=== PATIENT | male | born 1965 | race Caucasian/White ===

== ENCOUNTER 2019-01-31 19:06 | Inpatient (IN) | payer MEDICAID, OTHER ==
[~2019-01-31] VITALS: Ht 177.8 cm; Wt 190.5 kg
[~2019-01-31 19:06] MED LIST: ALLO300T2 PO; CLIN150C15 PO; CLIN300C11 PO; FURO20TA4 PO; GLU500 PO; HYDR-4100 PO; INDO-12 PO; KETO60CR2 TP; LEVO500T20 PO; LOSA25TA3 PO; OXCA300O4 PO; PRO40 PO
[2019-01-31 19:15] VITALS: BP_SYST 158
[2019-01-31] MEDS ORDERED: NACL 0.9% 2,000 ML IV ONE (20:02)
[2019-01-31] MEDS ORDERED: ONDANSETRON HCL 4 MG/2 ML VIAL IVP ONE (20:15)
[2019-01-31] MEDS ORDERED: CLINDAMYCIN 900 mg/50mL D5W 50 ML IV ONE (20:15)
[2019-01-31] MEDS ORDERED: MORPHINE 4 MG/ML INJ. SYRINGE IVP ONE (20:15)
[2019-01-31 21:13] LABS: BASOPHILS # (AUTO) 0.1 K/uL (0.0-0.2); BASOPHILS % (AUTO) 1.5 % (0.0-2.0); EOSINOPHILS # (AUTO) 0.2 K/uL (0.0-0.4); EOSINOPHILS % (AUTO) 2.1 % (0.0-4.0); HEMATOCRIT 36.1 % (36-54); HEMOGLOBIN 12.5 g/dL (14.0-18.0); LYMPHOCYTES # (AUTO) 1.5 K/uL (1.0-5.5); LYMPHOCYTES % (AUTO) 19.5 % (20.5-51.5); MEAN CORPUSCULAR HEMOGLOBIN 35 pg (27-31); MEAN CORPUSCULAR HGB CONC 35 % (32-36); MEAN CORPUSCULAR VOLUME 100 fL (79.0-98.0); MONOCYTES # (AUTO) 0.7 K/uL (0.0-1.0); MONOCYTES % (AUTO) 8.6 % (1.7-9.3); NEUTROPHILS # (AUTO) 5.3 K/uL (1.8-7.7); NEUTROPHILS % (AUTO) 68.3 % (40.0-70.0); PLATELET COUNT (AUTO) 206 K/uL (130-430); RED BLOOD CELL COUNT(AUTO) 3.61 MIL/uL (4.2-6.2); RED CELL DISTRIBUTION WIDTH 16.4 % (9.0-15.0); WHITE BLOOD COUNT (AUTO) 7.7 K/uL (4.8-10.8)
[2019-01-31 21:19] LABS: BILIRUBIN,URINE NEGATIVE (NEGATIVE); BLOOD, URINE NEGATIVE (NEGATIVE); CLARITY/URINE CLEAR (CLEAR); COLOR,URINE YELLOW (YELLOW); GLUCOSE,URINE NEGATIVE (NEGATIVE); KETONES,URINE NEGATIVE (NEGATIVE); LEUKOCYTE ESTERASE ,URINE NEGATIVE (NEGATIVE); NITRITE, URINE NEGATIVE (NEGATIVE); PH,URINE 7.5 (5.0-8.0); PROTEIN URINE 2+ (NEGATIVE); UROBILINOGEN,URINE 0.2 (0.2-1.0)
[2019-01-31 21:22] LABS: CALCIUM 8.7 mg/dL (8.4-11.0); CREATININE 0.82 mg/dL (0.55-1.30); POTASSIUM 4.4 mmol/L (3.5-5.1)
[2019-01-31 21:26] LABS: INR 1.1 (0.80-1.20); PROTHROMBIN TIME 10.8 SECS (9.5-12.5)
[2019-01-31 21:26] LABS: BACTERIA,URINE None Seen /HPF (None Seen); MUCUS,URINE None Seen /LPF (None Seen); RBC,URINE NONE SEEN /HPF (0-3); WBC,URINE 0-3 /HPF (0-3)
[2019-01-31 21:28] LABS: ALBUMIN 3.4 g/dL (3.4-4.8); TOTAL BILIRUBIN 0.4 mg/dL (0.0-1.0)
[2019-01-31] MEDS ORDERED: BACTROBAN TP (22:38)
[2019-01-31] MEDS ORDERED: FEN12PAT TD (22:39)
[2019-01-31] MEDS ORDERED: TIZA2TAB5 PO (22:39)
[2019-01-31] MEDS ORDERED: CHLO473M5 MM (22:41)
[2019-01-31] MEDS ORDERED: HEPA500015 SUBCUT (22:45)
[2019-01-31] MEDS ORDERED: ACET325T53 PO (22:48)
[2019-01-31] MEDS ORDERED: ONDA4TAB5 PO (22:52)
[2019-01-31] MEDS ORDERED: VANCOMYCIN IV SCH (23:00)
[2019-01-31] MEDS ORDERED: SODIUM CHLORIDE IV SCH (23:00)
[2019-01-31 23:09] VITALS: BP_SYST 142
[2019-01-31] MEDS ORDERED: MORPHINE 2 MG/ML INJ. SYRINGE IVP PRN ×2 (23:45)
[2019-02-01] MEDS ORDERED: CLINDAMYCIN 900 mg/50mL D5W 50 ML IV ONE (00:07)
[2019-02-01] MEDS ORDERED: VANCOMYCIN HCL 1000 MG/VIAL IV ONE (00:07)
[2019-02-01] MEDS: MORPHINE 4 MG/ML INJ. SYRINGE IVP PRN ×7 (00:29→21:25)
[2019-02-01 00:48] VITALS: BP_SYST 146
[2019-02-01] MEDS ORDERED: CLINDAMYCIN 900 mg/50mL D5W 50 ML IV SCH (06:00)
[2019-02-01] MEDS ORDERED: CLINDAMYCIN 900 MG in D5W 100 ML IV SCH (06:00)
[2019-02-01 08:00] VITALS: BP_SYST 140
[2019-02-01] MEDS: VANCOMYCIN HCL 1,500 MG in NS 250 ML IV SCH ×2 (09:44→18:13)
[2019-02-01 12:29] VITALS: BP_SYST 136
[2019-02-01 16:40] VITALS: BP_SYST 126
[2019-02-01 20:00] VITALS: BP_SYST 159
[2019-02-01] MEDS ORDERED: ACETAMINOPHEN 325 MG TABLET PO PRN (20:30)
[2019-02-01] MEDS: MUPIROCIN 2% TOPICAL OINTMENT 22 GM TP SCH ×2 (20:30→21:00)
[2019-02-01] MEDS: ONDANSETRON 4 MG ODT TAB PO PRN (21:30)
[2019-02-02] MEDS: VANCOMYCIN HCL 1,500 MG in NS 250 ML IV SCH ×3 (01:05→18:20)
[2019-02-02] MEDS: MORPHINE 4 MG/ML INJ. SYRINGE IVP PRN ×4 (01:06→11:46)
[2019-02-02 01:22] VITALS: BP_SYST 138
[2019-02-02] MEDS: HYDROcodone/ACETAMIN 10-325 MG TAB PO PRN ×3 (02:08→17:57)
[2019-02-02] MEDS: ONDANSETRON 4 MG ODT TAB PO PRN (08:07)
[2019-02-02 08:28] VITALS: BP_SYST 146
[2019-02-02] MEDS ORDERED: fentaNYL 12 MCG/HR PATCH TD SCH (09:00)
[2019-02-02] MEDS: PANTOPRAZOLE SODIUM 40 MG TAB PO SCH (09:36)
[2019-02-02] MEDS: ALLOPURINOL 300 MG TABLET (ZYLOPRIM) PO SCH (09:36)
[2019-02-02] MEDS: MUPIROCIN 2% TOPICAL OINTMENT 22 GM TP SCH ×2 (09:38→20:17)
[2019-02-02 09:40] LABS: BASOPHILS # (AUTO) 0.1 K/uL (0.0-0.2); BASOPHILS % (AUTO) 0.8 % (0.0-2.0); EOSINOPHILS # (AUTO) 0.2 K/uL (0.0-0.4); EOSINOPHILS % (AUTO) 2.2 % (0.0-4.0); HEMATOCRIT 34.8 % (36-54); HEMOGLOBIN 11.9 g/dL (14.0-18.0); LYMPHOCYTES % (AUTO) 26.2 % (20.5-51.5); MEAN CORPUSCULAR HEMOGLOBIN 33 pg (27-31); MEAN CORPUSCULAR HGB CONC 34 % (32-36); MEAN CORPUSCULAR VOLUME 97 fL (79.0-98.0); MONOCYTES # (AUTO) 0.7 K/uL (0.0-1.0); MONOCYTES % (AUTO) 9.1 % (1.7-9.3); NEUTROPHILS # (AUTO) 4.7 K/uL (1.8-7.7); NEUTROPHILS % (AUTO) 61.7 % (40.0-70.0); PLATELET COUNT (AUTO) 227 K/uL (130-430); RED CELL DISTRIBUTION WIDTH 16.7 % (9.0-15.0); WHITE BLOOD COUNT (AUTO) 7.6 K/uL (4.8-10.8)
[2019-02-02 10:00] LABS: ALBUMIN 3.3 g/dL (3.4-4.8); CALCIUM 8.4 mg/dL (8.4-11.0); CREATININE 0.71 mg/dL (0.55-1.30); POTASSIUM 4.1 mmol/L (3.5-5.1); TOTAL BILIRUBIN 0.5 mg/dL (0.0-1.0)
[2019-02-02 12:29] VITALS: BP_SYST 125
[2019-02-02] MEDS: HEPARIN SODIUM,PORCINE 5000 UNITS/ML VIAL SUBCUT SCH ×2 (14:26→22:21)
[2019-02-02] MEDS: MORPHINE SULFATE 10 MG/ML VIAL IVP PRN ×2 (15:31→20:04)
[2019-02-02] MEDS: EMOLLIENT COMBINATION NO.73 78 GM CREAM..G. TP SCH ×2 (15:32→20:18)
[2019-02-02 16:55] VITALS: BP_SYST 126
[2019-02-02 20:00] VITALS: BP_SYST 146
[2019-02-03] MEDS: MORPHINE SULFATE 10 MG/ML VIAL IVP PRN ×6 (00:02→20:26)
[2019-02-03 00:40] VITALS: BP_SYST 133
[2019-02-03] MEDS: VANCOMYCIN HCL 1,500 MG in NS 250 ML IV SCH ×3 (02:07→17:30)
[2019-02-03] MEDS: ONDANSETRON 4 MG ODT TAB PO PRN ×2 (04:04→12:28)
[2019-02-03] MEDS: HEPARIN SODIUM,PORCINE 5000 UNITS/ML VIAL SUBCUT SCH ×2 (05:50→13:44)
[2019-02-03 08:00] VITALS: BP_SYST 148
[2019-02-03] MEDS: EMOLLIENT COMBINATION NO.73 78 GM CREAM..G. TP SCH (08:11)
[2019-02-03] MEDS: PANTOPRAZOLE SODIUM 40 MG TAB PO SCH (08:11)
[2019-02-03] MEDS: MUPIROCIN 2% TOPICAL OINTMENT 22 GM TP SCH (08:11)
[2019-02-03] MEDS: ALLOPURINOL 300 MG TABLET (ZYLOPRIM) PO SCH (08:12)
[2019-02-03] MEDS: HYDROcodone/ACETAMIN 10-325 MG TAB PO PRN ×2 (10:55→17:31)
[2019-02-03 12:18] VITALS: BP_SYST 137
[2019-02-03 15:32] VITALS: BP_SYST 115
[2019-02-03 16:39] VITALS: BP_SYST 115
== END 2019-02-03 22:15 | DRG 383 ==
LOC: SED 19:06 → SMU 21:49
PROVIDERS: ADMIT Internal Medicine; ATTEND Internal Medicine
DX: L03.116 Cellulitis of left lower limb (principal); I50.22 Chronic systolic (congestive) heart failure; E66.01 Morbid (severe) obesity due to excess calories; M41.9 Scoliosis, unspecified; E87.1 Hypo-osmolality and hyponatremia; Z68.44 Body mass index [BMI] 60.0-69.9, adult; E11.9 Type 2 diabetes mellitus without complications; D64.9 Anemia, unspecified; L03.115 Cellulitis of right lower limb; K21.9 Gastro-esophageal reflux disease without esophagitis; M06.9 Rheumatoid arthritis, unspecified; J45.909 Unspecified asthma, uncomplicated; M19.90 Unspecified osteoarthritis, unspecified site; M10.9 Gout, unspecified; Z88.0 Allergy status to penicillin; Z86.14 Personal history of Methicillin resistant Staphylococcus aureus infection; Z87.440 Personal history of urinary (tract) infections; Z79.899 Other long term (current) drug therapy; Z95.0 Presence of cardiac pacemaker; I89.0 Lymphedema, not elsewhere classified
CPT/HCPCS: 36415; 71045; 80053; 80202-TC; 81000-TC; 82962; 83605; 85025; 85610-TC; 85730-TC; 87040-TC; 87081; 87086; 96365; 96375; 99285; J1644; J2270; J2405; J3370; J3490; J7050; J7060; Q0162